=== PATIENT | male | born 1955 | race Two or more races ===

== ENCOUNTER 2017-07-20 10:14 | Outpatient (CLI) | payer OTHER | END 2017-07-20 10:29 | disposition home or self-care (01) | LOC: MRI 10:14 | DX: M25.561 Pain in right knee (principal) | CPT/HCPCS: 73721 ==

== ENCOUNTER 2020-10-29 06:35 | Outpatient (CLI) | payer OTHER | END 2020-10-29 06:36 | disposition home or self-care (01) | LOC: LAB 06:35 | PROVIDERS: ATTEND General Practice | DX: M25.552 Pain in left hip (principal); N22 Calculus of urinary tract in diseases classified elsewhere ==

== ENCOUNTER 2020-10-29 07:22 | Outpatient (CLI) | payer OTHER | END 2020-10-29 07:36 | disposition home or self-care (01) | LOC: SONOGRAMA 07:22 | PROVIDERS: ATTEND General Practice | DX: M25.552 Pain in left hip (principal); N22 Calculus of urinary tract in diseases classified elsewhere ==

== ENCOUNTER 2021-06-13 06:29 | Outpatient (CLI) | payer OTHER | END 2021-06-13 06:30 | disposition home or self-care (01) | LOC: LAB 06:29 | PROVIDERS: ATTEND General Practice | DX: R21 Rash and other nonspecific skin eruption (principal); M79.605 Pain in left leg; M79.604 Pain in right leg; B35.9 Dermatophytosis, unspecified; Z13.89 Encounter for screening for other disorder; Z13.220 Encounter for screening for lipoid disorders; Z11.3 Encounter for screening for infections with a predominantly sexual mode of transmission; Z12.11 Encounter for screening for malignant neoplasm of colon; Z12.5 Encounter for screening for malignant neoplasm of prostate ==

== ENCOUNTER 2021-06-13 07:56 | Outpatient (CLI) | payer OTHER | END 2021-06-13 15:08 | disposition home or self-care (01) | LOC: NUCLEAR 07:56 | PROVIDERS: ATTEND General Practice | DX: M79.605 Pain in left leg (principal) ==

== ENCOUNTER 2021-06-16 10:26 | Outpatient (CLI) | payer OTHER | END 2021-06-16 10:27 | disposition home or self-care (01) | LOC: NUCLEAR 10:26 | PROVIDERS: ATTEND General Practice | DX: M79.605 Pain in left leg (principal) ==

== ENCOUNTER 2021-10-01 14:22 | Outpatient (CLI) | payer OTHER | END 2021-10-01 14:38 | disposition home or self-care (01) | LOC: RAD 14:22 | PROVIDERS: ATTEND General Practice | DX: M54.9 Dorsalgia, unspecified (principal); G89.29 Other chronic pain; M25.511 Pain in right shoulder; M54.2 Cervicalgia | CPT/HCPCS: 72146 ==